=== PATIENT | female | born 1980 | race Caucasian/White ===

== ENCOUNTER 2017-01-24 16:09 | Emergency (ER) | payer OTHER ==
[2017-01-24 16:24] VITALS: BP 141/98
[2017-01-24] MEDS ORDERED: Sodium Chloride 0.9% 1,000 ML IV ONE (16:43)
[2017-01-24] MEDS ORDERED: levETIRAcetam 1,000 MG in Sodium Chloride 0.9% 100 ML IV ONE (16:43)
--- NOTE | 2017-01-24 16:44 | EDM.PDOC ---
ED HPI GENERAL MEDICAL PROBLEM - General Chief Complaint: Neurological Problem Stated Complaint: HAD 4 SEIZURES Time Seen by Provider: 01/24/17 16:26 Source of Information: Reports: Patient History Limitations: Reports: No Limitations - History of Present Illness INITIAL COMMENTS - FREE TEXT/NARRATIVE: The patient is a 36-year-old female with a known seizure disorder. She has a history of generalized tonic-clonic seizures. She normally takes Tegretol for this condition. She comes in today after having had multiple seizures at home. She is here with her . Patient states that she was in bed when the seizures happened and she was not injured. She doesn't recall the details. She still has some foggy thinking. Her who is here with her today states that the seizures were witnessed by their son and he reported that they looked like the usual seizures. Patient did bite her tongue. Each seizure lasted about a minute. Stopped spontaneously. Patient states that she has forgotten to take her Tegretol for the past several days. She does still have more supply at home. No particular reason why she forgot to take her medication. Denies recent injury or illness. Headache Pain Score (Numeric/FACES): 10 - Related Data Allergies Allergy/AdvReac Type Severity Reaction Status Date / Time No Known Allergies Allergy Verified 01/24/17 16:24 Home Meds: Home Meds metFORMIN [Glucophage] 500 mg PO WITHDINNER 01/24/17 [History] Past Medical History Neurological History: Reports: Seizure Endocrine/Metabolic History: Reports: Diabetes, Type II - Past Surgical History GI Surgical History: Reports: Cholecystectomy Social & Family History - Family History Family Medical History: Noncontributory - Tobacco Use Smoking Status *Q: Never Smoker - Caffeine Use Caffeine Use: Reports: None - Recreational Drug Use Recreational Drug Use: No ED ROS GENERAL - Review of Systems Review Of Systems: See Below Constitutional: Denies: Fever HEENT: Reports: No Symptoms Respiratory: Denies: Shortness of Breath Cardiovascular: Reports: No Symptoms Endocrine: Reports: No Symptoms GI/Abdominal: Reports: No Symptoms : Reports: No Symptoms Musculoskeletal: Reports: No Symptoms Skin: Reports: No Symptoms Neurological: Reports: Seizure - Physical Exam Exam: See Below Exam Limited By: No Limitations General Appearance: Alert, WD/WN, No Apparent Distress, Anxious Eye Exam: Bilateral Eye: EOMI, PERRL Ears: Normal External Exam Nose: Normal Inspection Throat/Mouth: Normal Inspection, Normal Lips, Normal Teeth, Normal Oropharynx, Normal Voice, No Airway Compromise Head Exam: Atraumatic, Normocephalic Neck: Normal Inspection, Supple, Non-Tender, Full Range of Motion Respiratory/Chest: No Respiratory Distress, Lungs Clear, No Accessory Muscle Use , Chest Non-Tender Cardiovascular: Normal Peripheral Pulses, Regular Rate, Rhythm, No Murmur GI/Abdominal: Soft, Non-Tender, No Distention Neuro Exam (Abbreviated): Alert, Oriented, CN II-XII Intact, Normal Cognition, No Motor/Sensory Deficits Back Exam: Normal Inspection Extremities: Normal Inspection Psychiatric: Normal Affect, Normal Mood Skin Exam: Warm, Dry, Intact, Normal Color, No Rash Course - Vital Signs Last Recorded V/S: Last Vital Signs Temp 37.0 C 01/24/17 16:18 Pulse 140 H 01/24/17 16:18 Resp 17 01/24/17 16:18 BP 141/98 H 01/24/17 16:18 Pulse Ox 96 01/24/17 16:18 - Orders/Labs/Meds Orders: Active Orders 24 hr Category Date Time Status Blood Glucose Check, Bedside [RC] ONETIME Care 01/24/17 16:43 Active Labs: Laboratory Tests 01/24/17 Range/Units 17:24 POC Glucose 265 H (70-105) mg/dL Meds: Medications Discontinued Medications Generic Name Dose Route Start Last Admin Trade Name Joeq PRN Reason Stop Dose Admin Divalproex Sodium 500 mg 01/24/17 17:20 01/24/17 17:39 Depakote PO 01/24/17 17:21 500 mg ONETIME ONE Administration Sodium Chloride 1,000 mls @ 1,000 mls/hr 01/24/17 16:43 01/24/17 17:26 Normal Saline IV 01/24/17 17:42 1,000 mls/hr ONETIME ONE Administration Levetiracetam 1,000 mg/ Sodium 110 mls @ 400 mls/hr 01/24/17 16:43 01/24/17 17:19 Chloride IV 01/24/17 16:57 400 mls/hr ONETIME ONE Administration - Re-Assessments/Exams Free Text/Narrative Re-Assessment/Exam: 01/24/17 17:45 Blood sugar normal. It appears that she's been seizing due to noncompliance. Encouraged her to take her Tegretol. She has an adequate supply. She states that she tolerates it well except that it does make her sleepy. We will give her a dose of Tegretol here tonight. We've arty loaded her with Keppra as she didn't recall what medication she took initially. She was tachycardic upon triage in context of her recent seizures, heart rate now 100. Her cognition is clearing. She is here with her who can observe her tonight. Discussed return precautions. Departure - Departure Time of Disposition: 18:30 Disposition: Home, Self-Care 01 Clinical Impression: Seizure - Discharge Information Instructions: Seizure, Adult, [id number] Referrals: Johnny De La Cruz MD [Primary Care Provider] - Forms: ED Department Discharge Additional Instructions: Continue to take your Tegretol as prescribed. You may take it in the evening if it makes you sleepy. Follow-up with your primary doctor for further care. Return to the emergency department if you continue to have frequent seizures. - My Orders Last 24 Hours: My Active Orders 01/24/17 16:43 Blood Glucose Check, Bedside [RC] ONETIME - Assessment/Plan Last 24 Hours: My Active Orders 01/24/17 16:43 Blood Glucose Check, Bedside [RC] ONETIME
[2017-01-24] MEDS ORDERED: Divalproex Sodium Delayed-Release 500 MG Tab.CR PO ONE (17:20)
== END 2017-01-24 18:15 | disposition home or self-care (01) ==
LOC: JD.ED 16:09
DX: R56.9 Unspecified convulsions (principal); E11.9 Type 2 diabetes mellitus without complications; Z90.49 Acquired absence of other specified parts of digestive tract; Z79.84 Long term (current) use of oral hypoglycemic drugs
CPT/HCPCS: 82962; 96361; 96365; 99284; A9270; J1953; J7030; J7040

== ENCOUNTER 2021-03-01 09:38 | Emergency (ER) | payer OTHER ==
[2021-03-01 10:05] VITALS: BP 113/72; PULSE 128
--- NOTE | 2021-03-01 10:31 | EDM.PDOC ---
<Haris Beck Lupe - Last Filed: 03/01/21 10:30> ED HPI GENERAL MEDICAL PROBLEM - General Chief Complaint: Respiratory Problem Stated Complaint: SORE THROAT/RUNNY NOSE/COUGH CHEST PAIN Time Seen by Provider: 03/01/21 10:30 Source of Information: Reports: Patient History Limitations: Reports: No Limitations chest Pain Score (Numeric/FACES): 4 - Related Data Allergies Allergy/AdvReac Type Severity Reaction Status Date / Time No Known Allergies Allergy Verified 01/24/17 16:24 Home Meds: Home Meds metFORMIN [Glucophage] 500 mg PO WITHDINNER 01/24/17 [History] Past Medical History Neurological History: Reports: Seizure Endocrine/Metabolic History: Reports: Diabetes, Type II - Past Surgical History GI Surgical History: Reports: Cholecystectomy Social & Family History - Family History Family Medical History: No Pertinent Family History - Tobacco Use Tobacco Use Status *Q: Never Tobacco User - Caffeine Use Caffeine Use: Reports: None - Recreational Drug Use Recreational Drug Use: No #1 Interpretation EKG Date: 03/01/21 Time: 09:54 Rhythm: Other (Sinus tachycardia) Rate (Beats/Min): 119 [place]: LAD-Left [place] Deviation (Mild left axis deviation -18 degrees) P-Wave: Present (P wave is inverted in V1 and V2. Nonspecific finding) QRS: Normal ST-T: Other (Nonspecific T wave flattening in lead aVF only.) QT: Normal EKG Interpretation Comments: Borderline ECG no signs of ischemia Departure - Departure Disposition: Home, Self-Care 01 Clinical Impression: Hypokalemia, Hypomagnesemia, Sore throat (viral) Anemia Qualifiers: Anemia type: unspecified type Qualified Code(s): D64.9 - Anemia, unspecified - Discharge Information Instructions: Sore Throat, [id number], Viral Illness, Adult Referrals: Johnny De La Cruz MD [Primary Care Provider] - Forms: ED Department Discharge Additional Instructions: You were seen in the emergency department today with complaints of a sore throat, chest pain and diarrhea. Exam today included labs, chest x-ray, EKG, and swab for strep throat and COVID-19. Strep and Covid were negative. EKG was unremarkable however did show that your heart rate was slightly fast. This was likely due to the fever that you are having. Lab work did show that you are anemic and this is likely due to the blood loss you are having during her periods. It is strongly recommended that you follow-up with your [employer]AIL INTERIOR DESIGNER for recommendations on resolving heavy menstrual cycles. Your potassium and magnesium levels were low today. You were given supplementation for this. Recommend eating potassium rich foods as well as foods rich in magnesium. Go home and rest, drink plenty of fluids, may take Tylenol 650 mg every 4 hours as needed for discomfort alternating with ibuprofen 600 mg every 4 hours. This should help with your throat comfort. You may gargle with salt water to relieve throat discomfort as well. You stated you had a follow-up appointment scheduled with Dr. Adams Saturday of next week. Strongly recommend that you keep this appointment for follow-up on your low hemoglobin, potassium and magnesium l evels. Also recommend that you do go ahead and get your second Covid vaccination at this time. Should your condition worsen or change, do not hesitate returning to the emergency department. Sepsis Event Note (ED) - Evaluation Sepsis Screening Result: No Definite Risk <Kostas Cuellar - Last Filed: 03/01/21 16:14> ED HPI GENERAL MEDICAL PROBLEM - General Source of Information: Reports: Patient History Limitations: Reports: No Limitations - History of Present Illness INITIAL COMMENTS - FREE TEXT/NARRATIVE: 40-year-old female presents the emergency department with complaints of sore throat, fatigue and body aches. Patient states that this started yesterday. She then went to the walk-in clinic this morning and while she was there developed midsternal chest pain and diaphoresis. She states at that time she immediately felt like she had to have a bowel movement. When she went to the bathroom she had an episode of diarrhea stool and continued to have the chest d iscomfort and diaphoresis and was directed to come to the emergency department. Patient states she has had her first Covid vaccine and is due for her second vaccine later this week. Denies any cough or shortness of breath. Denies any abdominal pain. States she has had a slight headache, chills, severe fatigue and body aches. She has not had any nausea or vomiting. She is not a smoker and drinks alcohol rarely. She does have a history of epilepsy and takes Depakote for this. She states it has been more than 5 years since her last seizure. She also has a history of type 2 diabetes for which she takes Metformin. Her primary care provider is Dr. Adams. ED ROS GENERAL - Review of Systems Review Of Systems: Comprehensive ROS is negative, except as noted in HPI. ED EXAM, GENERAL - Physical Exam Exam: See Below Exam Limited By: No Limitations General Appearance: Alert, WD/WN, Mild Distress Ears: Normal External Exam, Hearing Grossly Normal, Normal TMs. No: Normal Canal (Erythema noted to left canal) Ear Exam: Bilateral Ear: Canal Normal, TM normal Nose: Normal Inspection Throat/Mouth: Normal Inspection, Normal Lips, Normal Teeth, Normal Gums, Normal Voice, No Airway Compromise. No: Normal Oropharynx (Pharynx is erythematous but no edema is appreciated) Head: Atraumatic Neck: Normal Inspection, Supple Respiratory/Chest: No Respiratory Distress, Lungs Clear, Normal Breath Sounds, No Accessory Muscle Use, Chest Non-Tender Cardiovascular: Normal Peripheral Pulses, Regular Rate, Rhythm, No Edema, No Murmur Peripheral Pulses: 2+: Radial (L), Radial (R) GI/Abdominal: Normal Bowel Sounds, Soft, Non-Tender, No Distention (Female) Exam: Deferred Rectal (Female) Exam: Deferred Back Exam: Normal Inspection Extremities: Normal Inspection, Normal Range of Motion, Non-Tender, No Pedal Edema, Normal Capillary Refill Neurological: Alert, Oriented, Normal Cognition Psychiatric: Normal Affect, Normal Mood Skin Exam: Dry, Intact, No Rash, Pallor. No: Warm (Skin is hot to touch) Lymphatic: No Adenopathy #1 Interpretation Time: 09:54 Rhythm: NSR Arrowsmith: LAD-Left Arrow[place] Deviation P-Wave: Present QRS: Normal ST-T: Other QT: Normal Course - Vital Signs Text/Narrative:: As stated above, the patient has a 1 day history of sore throat, body aches and generalized fatigue that started yesterday. Was seen at the [place] walk-in clinic today and was directed to come to the emergency department when she developed midsternal chest pain, diaphoresis and diarrhea. Upon assessment, the patient is tachycardic and warm to touch. Recheck of her temp shows 99.9 tympanic. Patient does appear fatigued. Tympanic membranes are unremarkable. Her throat has erythema but tonsils are not swollen and there is no exudate appreciated. Lung sounds are clear bilaterally. Abdomen is soft and nontender. Will obtain an EKG, Covid swab, CBC, CMP, C-reactive protein, magnesium, troponin, strep throat swab, and portable chest x-ray. We will order for her to receive a liter of normal saline wide open as well as Tylenol 650 mg to treat the temp. Last Recorded V/S: Last Vital Signs Temp 99.9 F 03/01/21 11:38 Pulse 128 H 03/01/21 10:02 Resp 18 03/01/21 10:02 BP 113/72 03/01/21 10:02 Pulse Ox 98 03/01/21 10:02 - Orders/Labs/Meds Orders: Active Orders 24 hr Category Date Time Status CALCIUM, IONIZED, SERUM [REF] Stat Lab 03/01/21 13:15 Received Sodium Chloride 0.9% [Saline Flush] Med 03/01/21 11:25 Active 10 ml FLUSH ASDIRECTED PRN Saline Lock Insert [OM.PC] Stat Oth 03/01/21 11:25 Ordered EKG 12 Lead [EK] Stat Ther 03/01/21 10:01 Ordered Medication Orders Sodium Chloride (Sodium Chloride 0.9% 10 Ml Syringe) 10 ml FLUSH ASDIRECTED PRN PRN Reason: Keep Vein Open Last Admin: 03/01/21 11:38 Dose: 10 ml Documented by: SOHAM Labs: Laboratory Tests 03/01/21 03/01/21 03/01/21 Range/Units 09:54 10:35 10:35 WBC 10.27 H (3.98-10.04) K/mm3 RBC 4.42 (3.98-5.22) M/mm3 Hgb 9.6 L (11.2-15.7) gm/dl Hct 31.3 L (34.1-44.9) % MCV 70.8 L (79.4-94.8) fl MCH 21.7 L (25.6-32.2) pg MCHC 30.7 L (32.2-35.5) g/dl RDW Std Deviation 40.4 (36.4-46.3) fL Plt Count 168 L (182-369) K/mm3 MPV 9.3 L (9.4-12.3) fl Neut % (Auto) 72.2 H (34.0-71.1) % Lymph % (Auto) 12.8 L (19.3-51.7) % [place] % (Auto) 14.2 H (4.7-12.5) % Eos % (Auto) 0.3 L (0.7-5.8) Baso % (Auto) 0.1 (0.1-1.2) % Neut # (Auto) 7.42 H (1.56-6.13) K/mm3 Lymph # (Auto) 1.31 (1.18-3.74) K/mm3 [place] # (Auto) 1.46 H (0.24-0.36) K/mm3 Eos # (Auto) 0.03 L (0.04-0.36) K/mm3 Baso # (Auto) 0.01 (0.01-0.08) K/mm3 Manual Slide Review Not Reportable Sodium 141 (136-145) mEq/L Potassium 3.3 L (3.5-5.1) mEq/L Chloride 107 (98-107) mEq/L Carbon Dioxide 25 (21-32) mEq/L Anion Gap 12.3 (5-15) BUN 5 L (7-18) mg/dL Creatinine 0.5 L (0.55-1.02) mg/dL Est Cr Clr Drug Dosing 119.47 mL/min Estimated GFR (MDRD) > 60 (>60) mL/min BUN/Creatinine Ratio 10.0 L (14-18) Glucose 273 H (70-99) mg/dL Lactic Acid (0.4-2.0) mmol/L Calcium 6.6 L (8.5-10.1) mg/dL Magnesium 1.4 L (1.8-2.4) mg/dL Total Bilirubin 0.2 (0.2-1.0) mg/dL AST 13 L (15-37) U/L ALT 17 (14-59) U/L Alkaline Phosphatase 63 (46-116) U/L Troponin I (0.00-0.056) ng/mL C-Reactive Protein 1.6 H* (<1.0) mg/dL Total Protein 6.3 L (6.4-8.2) g/dl Albumin 2.5 L (3.4-5.0) g/dl Globulin 3.8 gm/dL Albumin/Globulin Ratio 0.7 L (1-2) Urine Color (Yellow) Urine Appearance (Clear) Urine pH (5.0-8.0) Ur Specific Elizabeth (1.005-1.030) Urine Protein (Negative) Urine Glucose (UA) (Negative) Urine Ketones (Negative) Urine Occult Blood (Negative) Urine Nitrite (Negative) Urine Bilirubin (Negative) Urine Urobilinogen (0.2-1.0) Ur Leukocyte Esterase (Negative) Influenza Type A RNA Negative (NEGATIVE) Influenza Type B RNA Negative (NEGATIVE) SARS-CoV-2 RNA (JESSY) Negative (NEGATIVE) Group A Strep (PCR) (NOT DETECT) 03/01/21 03/01/21 03/01/21 Range/Units 10:35 11:39 13:15 WBC (3.98-10.04) K/mm3 RBC (3.98-5.22) M/mm3 Hgb (11.2-15.7) gm/dl Hct (34.1-44.9) % MCV (79.4-94.8) fl MCH (25.6-32.2) pg MCHC (32.2-35.5) g/dl RDW Std Deviation (36.4-46.3) fL Plt Count (182-369) K/mm3 MPV (9.4-12.3) fl Neut % (Auto) (34.0-71.1) % Lymph % (Auto) (19.3-51.7) % [place] % (Auto) (4.7-12.5) % Eos % (Auto) (0.7-5.8) Baso % (Auto) (0.1-1.2) % Neut # (Auto) (1.56-6.13) K/mm3 Lymph # (Auto) (1.18-3.74) K/mm3 [place] # (Auto) (0.24-0.36) K/mm3 Eos # (Auto) (0.04-0.36) K/mm3 Baso # (Auto) (0.01-0.08) K/mm3 Manual Slide Review Sodium (136-145) mEq/L Potassium (3.5-5.1) mEq/L Chloride (98-107) mEq/L Carbon Dioxide (21-32) mEq/L Anion Gap (5-15) BUN (7-18) mg/dL Creatinine (0.55-1.02) mg/dL Est Cr Clr Drug Dosing mL/min Estimated GFR (MDRD) (>60) mL/min BUN/Creatinine Ratio (14-18) Glucose (70-99) mg/dL Lactic Acid 1.8 (0.4-2.0) mmol/L Calcium (8.5-10.1) mg/dL Magnesium (1.8-2.4) mg/dL Total Bilirubin (0.2-1.0) mg/dL AST (15-37) U/L ALT (14-59) U/L Alkaline Phosphatase (46-116) U/L Troponin I < 0.017 (0.00-0.056) ng/mL C-Reactive Protein (<1.0) mg/dL Total Protein (6.4-8.2) g/dl Albumin (3.4-5.0) g/dl Globulin gm/dL Albumin/Globulin Ratio (1-2) Urine Color (Yellow) Urine Appearance (Clear) Urine pH (5.0-8.0) Ur Specific Elizabeth (1.005-1.030) Urine Protein (Negative) Urine Glucose (UA) (Negative) Urine Ketones (Negative) Urine Occult Blood (Negative) Urine Nitrite (Negative) Urine Bilirubin (Negative) Urine Urobilinogen (0.2-1.0) Ur Leukocyte Esterase (Negative) Influenza Type A RNA (NEGATIVE) Influenza Type B RNA (NEGATIVE) SARS-CoV-2 RNA (JESSY) (NEGATIVE) Group A Strep (PCR) Not detected (NOT DETECT) 03/01/21 Range/Units 15:02 WBC (3.98-10.04) K/mm3 RBC (3.98-5.22) M/mm3 Hgb (11.2-15.7) gm/dl Hct (34.1-44.9) % MCV (79.4-94.8) fl MCH (25.6-32.2) pg MCHC (32.2-35.5) g/dl RDW Std Deviation (36.4-46.3) fL Plt Count (182-369) K/mm3 MPV (9.4-12.3) fl Neut % (Auto) (34.0-71.1) % Lymph % (Auto) (19.3-51.7) % [place] % (Auto) (4.7-12.5) % Eos % (Auto) (0.7-5.8) Baso % (Auto) (0.1-1.2) % Neut # (Auto) (1.56-6.13) K/mm3 Lymph # (Auto) (1.18-3.74) K/mm3 [place] # (Auto) (0.24-0.36) K/mm3 Eos # (Auto) (0.04-0.36) K/mm3 Baso # (Auto) (0.01-0.08) K/mm3 Manual Slide Review Sodium (136-145) mEq/L Potassium (3.5-5.1) mEq/L Chloride (98-107) mEq/L Carbon Dioxide (21-32) mEq/L Anion Gap (5-15) BUN (7-18) mg/dL Creatinine (0.55-1.02) mg/dL Est Cr Clr Drug Dosing mL/min Estimated GFR (MDRD) (>60) mL/min BUN/Creatinine Ratio (14-18) Glucose (70-99) mg/dL Lactic Acid (0.4-2.0) mmol/L Calcium (8.5-10.1) mg/dL Magnesium (1.8-2.4) mg/dL Total Bilirubin (0.2-1.0) mg/dL AST (15-37) U/L ALT (14-59) U/L Alkaline Phosphatase (46-116) U/L Troponin I (0.00-0.056) ng/mL C-Reactive Protein (<1.0) mg/dL Total Protein (6.4-8.2) g/dl Albumin (3.4-5.0) g/dl Globulin gm/dL Albumin/Globulin Ratio (1-2) Urine Color Yellow (Yellow) Urine Appearance Clear (Clear) Urine pH 6.0 (5.0-8.0) Ur Specific Elizabeth 1.025 (1.005-1.030) Urine Protein Negative (Negative) Urine Glucose (UA) 2+ H (Negative) Urine Ketones 2+ H (Negative) Urine Occult Blood Negative (Negative) Urine Nitrite Negative (Negative) Urine Bilirubin Negative (Negative) Urine Urobilinogen 0.2 (0.2-1.0) Ur Leukocyte Esterase Negative (Negative) Influenza Type A RNA (NEGATIVE) Influenza Type B RNA (NEGATIVE) SARS-CoV-2 RNA (JESSY) (NEGATIVE) Group A Strep (PCR) (NOT DETECT) Meds: Medications Generic Name Dose Route Start Last Admin Trade Name Luci PRN Reason Stop Dose Admin Sodium Chloride 10 ml 03/01/21 11:25 03/01/21 11:38 Sodium Chloride 0.9% 10 Ml Syringe FLUSH 10 ml ASDIRECTED PRN Administration Keep Vein Open Discontinued Medications Generic Name Dose Route Start Last Admin Trade Name Luci PRN Reason Stop Dose Admin Acetaminophen 650 mg 03/01/21 11:25 03/01/21 11:38 Acetaminophen 325 Mg Tab PO 03/01/21 11:26 650 mg NOW ONE Administration Sodium Chloride 1,000 mls @ 999 mls/hr 03/01/21 11:25 03/01/21 11:38 Normal Saline IV 03/01/21 12:25 999 mls/hr ONETIME ONE Administration Sodium Chloride 1,000 mls @ 999 mls/min 03/01/21 12:45 03/01/21 12:50 Normal Saline IV 03/01/21 12:46 999 mls/min ONETIME ONE Administration Magnesium Sulfate 2 gm/ Premix 50 mls @ 25 mls/hr 03/01/21 12:51 03/01/21 13:00 IV 03/01/21 14:50 25 mls/hr ONETIME ONE Administration Ketorolac Tromethamine 30 mg 03/01/21 12:45 03/01/21 12:50 Ketorolac 30 Mg/Ml Sdv IVPUSH 03/01/21 12:46 30 mg ONETIME ONE Administration Potassium Chloride 40 meq 03/01/21 12:47 03/01/21 12:51 Potassium Chloride 20 Meq Tab.Er PO 03/01/21 12:48 40 meq ONETIME ONE Administration - Re-Assessments/Exams Free Text/Narrative Re-Assessment/Exam: 03/01/21 12:12 Radiologist impression frontal view of the chest: Heart size and mediastinum are normal. Lungs are clear with no acute parenchymal change. Surgical clips are seen from prior cholecystectomy. Minimal scoliosis is noted. 03/01/21 12:49 Hematology reveals a WBC of 10.27, hemoglobin 9.6, hematocrit 31.3, MCV 70.8, platelet count 168, Chemistry reveals a sodium of 141, potassium 3.3, chloride 107, carbon dioxide 25, anion gap 12.3, BUN 5, creatinine 0.5, GFR greater than 60, glucose 273, calcium 6.6, magnesium 1.4, total bilirubin 0.2, AST 13, ALT 17, alk phos 63, troponin less than 0.017, C-reactive protein 1.6, total protein 6.3, albumin 2.5 Serology reveals influenza a and B are negative, patient is Covid negative, group A strep negative I have ordered an ionized calcium however this is a send out. Calcium correction in hypoalbuminemia results out 8.12. Discussed the patient's lab results with her and she states that she does have periods that last for 7 days. Of those 7 days 3-4 those days are very heavy with clots. She states that this has been for most of her life. This would explain the low hemoglobin level. I asked her if she is ever discussed this with her [employer] DES[employer]ER and she has not. First liter of IV fluids is and. Patient remains tachycardic in the 120s. She states her throat is still very sore as well. I have ordered for her to receive a second liter of IV fluids. We will give her Toradol 30 mg IV. We will also replace her potassium with 40 mEq p.o. And we will give her 2 g of magnesium IV. 03/01/21 14:43 Lactic acid level is 1.8. Nursing staff reports that patient is asking to eat lunch and states she is feeling slightly better. Reports that her sore throat pain is gone. 03/01/21 15:52 Urinalysis shows 2+ glucose and 2+ ketones, nitrite negative, leukocyte Estrace negative 03/01/21 16:14 Patient does report feeling better. Her heart rate is down in the low 100s. She will be discharged home. She tells me she has a appointment already scheduled with her primary care provider, Dr. Adams for Saturday of next week. Also recommend that she follow-up with her [employer] DES[employer] in regards to her heavy menstrual cycles. Departure - Departure Time of Disposition: 16:09 Condition: Good Sepsis Event Note (ED) - Focused Exam Vital Signs: Vital Signs Temp Temp Pulse Resp BP Pulse Ox 03/01/21 11:38 99.9 F 03/01/21 10:02 98.1 F 128 H 18 113/72 98 - My Orders Last 24 Hours: My Active Orders 03/01/21 10:01 EKG 12 Lead [EK] Stat 03/01/21 11:25 Sodium Chloride 0.9% [Saline Flush] 10 ml FLUSH ASDIRECTED PRN Saline Lock Insert [OM.PC] Stat 03/01/21 13:15 CALCIUM, IONIZED, SERUM [REF] Stat - Assessment/Plan Last 24 Hours: My Active Orders 03/01/21 10:01 EKG 12 Lead [EK] Stat 03/01/21 11:25 Sodium Chloride 0.9% [Saline Flush] 10 ml FLUSH ASDIRECTED PRN Saline Lock Insert [OM.PC] Stat 03/01/21 13:15 CALCIUM, IONIZED, SERUM [REF] Stat
[2021-03-01 10:43] LABS: CORONAVIRUS COVID-19 NAA NEGATIVE (NEGATIVE)
[2021-03-01] MEDS ORDERED: Acetaminophen 325 MG Tab PO ONE (11:25)
[2021-03-01] MEDS ORDERED: Sodium Chloride 0.9% 1,000 ML IV ONE ×2 (11:25→12:45)
[2021-03-01] MEDS ORDERED: Sodium Chloride 0.9% 10 ML Syringe FLUSH PRN (11:25)
--- NOTE | 2021-03-01 11:58 | CR ---
Chest: Frontal view of the chest was obtained. Comparison: No prior chest imaging is available. Heart size and mediastinum are normal. Lungs are clear with no acute parenchymal change. Surgical clips are seen from prior cholecystectomy. Minimal scoliosis is noted. Impression: 1. Incidental findings as described above. 2. Nothing acute is seen on frontal chest x-ray. Diagnostic code #2
[2021-03-01] MEDS ORDERED: Ketorolac 30 MG/ML SDV IVPUSH ONE (12:45)
[2021-03-01] MEDS ORDERED: Potassium Chloride 20 MEQ Tab.ER PO ONE (12:47)
[2021-03-01] MEDS ORDERED: Magnesium Sulfate/Water 2 GM in Premix Bag 1 BAG IV ONE (12:51)
== END 2021-03-01 16:25 | disposition home or self-care (01) ==
LOC: JD.ED 09:38
DX: J02.8 Acute pharyngitis due to other specified organisms (principal); E87.6 Hypokalemia; E83.42 Hypomagnesemia; D64.9 Anemia, unspecified; E11.9 Type 2 diabetes mellitus without complications; Z79.84 Long term (current) use of oral hypoglycemic drugs
CPT/HCPCS: 0240U; 36415; 71045; 80053; 81003; 82330; 83605; 83735; 84484; 85025; 86140; 87651; 93005; 96365; 96366; 96375; 99284; A9270; J1885; J3475; J7030; 93010

== ENCOUNTER 2023-09-26 06:58 | Day surgery (SDC) | payer BC, OTHER ==
[2023-09-26] MEDS: Polymyxin B/Trimethoprim 10 ML Bottle EYERT SCH (07:19)
[2023-09-26] MEDS: Brimonidine 0.2% Ophth Soln 5 ML Bottle EYERT SCH (07:23)
[2023-09-26] MEDS: Phenylephrine 2.5% Ophth Soln 2 ML Bot EYERT SCH (07:30)
[2023-09-26] MEDS: Tropicamide 1% Ophth Soln 3 ML Bottle EYERT SCH (07:35)
[2023-09-26] MEDS: Tetracaine HCl/PF 0.5% 4 ML Bottle EYEBOTH SCH (08:10)
[2023-09-26] MEDS: Lidocaine 1% PF 2 ML SDV INJECT SCH (08:27)
[2023-09-26] MEDS: Pilocarpine 4% Ophth Soln 15 ML Bot EYERT SCH (08:38)
[2023-09-26] MEDS: Cefuroxime 10 MG/ML SYRINGE EYERT SCH (08:38)
[2023-09-26 08:54] VITALS: BP 112/87; PULSE 99
== END 2023-09-26 08:50 | disposition home or self-care (01) ==
LOC: JD.SDS 06:58
PROVIDERS: ATTEND Ophthalmology
DX: E11.36 Type 2 diabetes mellitus with diabetic cataract (principal); Z79.899 Other long term (current) drug therapy
CPT/HCPCS: A9270-GY; J0697; J3490; V2632

== ENCOUNTER 2023-10-24 08:10 | Day surgery (SDC) | payer BC, OTHER ==
[2023-10-24] MEDS: Polymyxin B/Trimethoprim 10 ML Bottle EYELF SCH (07:23)
[2023-10-24] MEDS: LORazepam 1 MG Tab PO SCH (07:25)
[2023-10-24] MEDS: Brimonidine 0.2% Ophth Soln 5 ML Bottle EYELF SCH (07:28)
[2023-10-24] MEDS: Phenylephrine 2.5% Ophth Soln 2 ML Bot EYELF SCH (07:33)
[2023-10-24] MEDS: Tropicamide 1% Ophth Soln 3 ML Bottle EYELF SCH (07:38)
[2023-10-24] MEDS: Tetracaine HCl/PF 0.5% 4 ML Bottle EYEBOTH SCH (08:20)
[2023-10-24] MEDS: Lidocaine 1% PF 2 ML SDV INJECT SCH (08:44)
[2023-10-24] MEDS: Cefuroxime 10 MG/ML SYRINGE EYELF SCH (08:51)
[2023-10-24] MEDS: Pilocarpine 4% Ophth Soln 15 ML Bot EYELF SCH (08:52)
[2023-10-24 09:12] VITALS: BP 132/89; PULSE 95
== END 2023-10-24 09:08 | disposition home or self-care (01) ==
LOC: JD.SDS 08:10
PROVIDERS: ATTEND Ophthalmology
DX: E10.36 Type 1 diabetes mellitus with diabetic cataract (principal); H25.812 Combined forms of age-related cataract, left eye; Z96.1 Presence of intraocular lens; H52.31 Anisometropia; H16.103 Unspecified superficial keratitis, bilateral; H16.223 Keratoconjunctivitis sicca, not specified as Sjogren's, bilateral
CPT/HCPCS: 66984; A9270; J0697; 00142; J3490; V2788-GY